=== PATIENT | male | born 1975 | race Caucasian/White ===

== ENCOUNTER 2023-06-09 19:16 | Emergency (ER) | payer OTHER, SELFPAY ==
[2023-06-09 20:00] VITALS: BP 131/100; PULSE 86; RESP 15; TEMP 36.6; O2SAT 97
--- NOTE | 2023-06-09 21:53 | ECG_ITS ---
Measurements Intervals [place] Rate: 78 P: -12 OR: 148 QRS: -16 QRSD: 98 T: 4 QT: 382 QTc: 438 Interpretive Statements SINUS RHYTHM CANNOT RULE OUT PREVIOUS INFERIOR INFARCTION POSSIBLE LEFT VENTRICULAR HYPERTROPHY [VOLTAGE CRITERIA PLUS LAE OR QRS WIDENING] ABNORMAL ECG NO PREVIOUS ECG AVAILABLE FOR COMPARISON Electronically Signed On 06-10-2023 7:12:35 CIRCLE EDGER by John Javier M.D.
--- NOTE | 2023-06-09 21:55 | ED.GENADULT ---
HPI - General Adult General Chief complaint: Psychiatric Symptoms <ALLY Oliver Last Filed: 06/10/23 02:33> Stated complaint: psych eval- auditory/visual hallucinations <ALLY Oliver Last Filed: 06/10/23 02:33> Time Seen by Provider: 06/09/23 21:25 <Ismael Parekh PA-C - Last Filed: 06/10/23 02:33> Source: patient <ALLY Oliver Last Filed: 06/10/23 02:33> Mode of arrival: ambulatory <ALLY Oliver Last Filed: 06/10/23 02:33> Limitations: no limitations <ALLY Oliver Last Filed: 06/10/23 02:33> History of Present Illness HPI narrative: This is a 47-year-old male who presents to the ED with chief complaint of hallucinations both auditory and visual for the past several months. Patient states that his medications are not working and that his anxiety is worsening. Reports he has had occasional thoughts of suicide over the past couple of weeks but no plan to do so. Denies any history of suicide attempt. He will not elaborate on what the voices say but does not indicate that they are vocalizing for him to commit suicide. States his visual hallucinations are him seeing apparitions. Denies any homicidal thoughts. <Ismael Parekh PA-C - Last Filed: 06/10/23 02:33> Related Data Allergies/adverse reactions: Allergies Allergy/AdvReac Type Severity Reaction Status Date / Time No Known Allergies Allergy Verified 06/09/23 21:56 <Ismael Parekh PA-C - Last Filed: 06/10/23 02:33> [facility] Social History Social History: Social History Substance use type: crack/cocaine and amphetamines <ALLY Oliver Last Filed: 06/10/23 02:33> Exam Narrative: GENERAL: Disheveled appearance. Resting comfortably HEAD: Normocephalic, atraumatic. EYES: PERRLA and EOMI. ENT: Nares clear, no rhinorrhea or epistaxis. Mucous membranes moist. Oropharynx without tonsillar hypertrophy exudate or other lesions. NECK: Supple. No adenopathy or masses. CHEST: No respiratory distress. Clear to auscultation. No wheezes rales or rhonchi HEART: Regular rate and rhythm. No murmur heard. Normal peripheral pulses. ABDOMEN: Soft, nontender, nondistended, normal active bowel sounds. MSK: Normal range of motion. No edema. SKIN: Warm, dry, no rash. NEURO: Alert and oriented x3. No focal deficits. PSYCH: Passive suicidal ideations. No current suicidal intent or plan. Negative homicidal ideation. Seems to be responding to internal stimuli at times but overall very cooperative and polite during the exam. <Ismael Parekh PA-C - Last Filed: 06/10/23 02:33> Course Reevaluation(s) Reevaluation #1: Currently patient complaining of visual and auditory hallucination, is telling me that he would like to go to a psych facility because does not feel well, did not tell me what does he see or hear. But insisted to go to psych facility. <Nargis Nance MD - Last Filed: 06/10/23 14:01> Date: 06/10/23 <Nargis Nance MD - Last Filed: 06/10/23 14:01> Time: 09:22 <Nargis Nance MD - Last Filed: 06/10/23 14:01> Vital Signs Vital signs: Vital Signs Temperature 97.9 F 06/09/23 20:00 Pulse Rate 86 06/09/23 20:00 Respiratory Rate 15 06/09/23 20:00 Blood Pressure 131/100 H 06/09/23 20:00 Pulse Oximetry 97 06/09/23 20:00 Temperature 97.5 F L 06/10/23 17:54 Pulse Rate 72 06/10/23 17:54 Respiratory Rate 16 06/10/23 17:54 Blood Pressure 127/72 06/10/23 17:54 Pulse Oximetry 99 06/10/23 17:54 <Ismael Parekh PA-C - Last Filed: 06/10/23 02:33> Vital Signs Temperature 97.9 F 06/09/23 20:00 Pulse Rate 86 06/09/23 20:00 Respiratory Rate 15 06/09/23 20:00 Blood Pressure 131/100 H 06/09/23 20:00 Pulse Oximetry 97 06/09/23 20:00 Temperature 97.5 F L 06/10/23 17:54 Pulse Rate 72 06/10/23 17:54 Respiratory Rate 16 06/10/23 17:54 Blood Pressure 127/72 06/10/23 17:54 Pulse
[2023-06-09 22:13] LABS: Basophils Percent Auto 0.5 % (0.2-1.2); Eosinophils Absolute Auto 0.1 K/mm3 (0-0.3); Eosinophils Percent Auto 1.8 % (0-4.4); Hematocrit 40.1 % (42.0-52.0); Hemoglobin 13.2 g/dL (14.0-18.0); Immature Granulocyte Absolute 0.01 K/mm3 (0.00-0.031); Immature Granulocyte Percent A 0.2 % (0-0.5); Lymphocytes Absolute Auto 3.14 K/mm3 (0.9-3.2); Lymphocytes Percent Auto 47.8 % (18.3-44.2); Mean Corpuscular HGB Conc 32.9 g/dl (32-36); Mean Corpuscular Hemoglobin 31.1 pg (26-34); Mean Corpuscular Volume 94.4 fl (80-100); Mean Platelet Volume 9.8 fl (7.4-10.4); Monocytes Absolute Auto 0.5 K/mm3 (0.1-0.6); Monocytes Percent Auto 8.1 % (2.6-8.5); Neutrophils Absolute Auto 2.7 K/mm3 (1.3-6.7); Neutrophils Percent Auto 41.6 % (45.5-73.1); Platelet Count Result 267 k/mm3 (150-375); Red Blood Count 4.25 M/mm3 (4.6-6.20); Red Cell Distribution Width 13.3 % (11.5-14.5); White Blood Count 6.6 K/mm3 (4.5-10.0)
[2023-06-09 22:23] LABS: Acetaminophen < 10 ug/mL (10-30); Ethanol < 10 mg/dL (<10); Salicylate < 1.0 mg/dL (2-20)
[2023-06-09 22:48] LABS: Anion Gap 11 mmol/L (8-16); Blood Urea Nitrogen 6 mg/dL (9-20); Carbon Dioxide 25 mmol/L (22-30); Chloride 104 mmol/L (98-107); Estimated CRCL calculation 132 ml/min; Estimated Glomerular Filt Rate > 60; Glucose 93 mg/dL (65-110); Potassium 3.5 mmol/L (3.4-5.0); Sodium 140 mmol/L (137-145)
[2023-06-09 22:52] LABS: Influenza A QL RT-PCR Negative (Negative); Influenza B QL RT-PCR Negative (Negative); RSV RNA, RT-PCR Negative (Negative); SARS-CoV-2 RNA PCR Negative (Negative)
[2023-06-10 02:33] VITALS: BP 117/66; PULSE 77; RESP 20; O2SAT 100
--- NOTE | 2023-06-10 03:12 | PC.NURSE ---
Report received from FRANCIE Elam
--- NOTE | 2023-06-10 03:13 | PC.NURSE ---
Upon entering the patients room the patient was sleeping. The patient was asked by nursing staff he if could provide a urine sample. The patient stated not at the moment . Patient states I'm drinking water . When asked if patient wanted a straight catheter to obtain urine or IV fluids patient denied and stated I'm trying to urinate naturally .
[2023-06-10 05:39] VITALS: BP 126/82; PULSE 76; RESP 14; O2SAT 99
[2023-06-10 07:06] LABS: Appearance Urine Clear (Clear); Bacteria Urine None Seen /hpf; Bilirubin Urine Negative (Negative); Blood Urine Negative (Negative); Color Urine Dark Yellow (Yellow); Glucose Urine UA Negative (Negative); Ketones Urine Trace mg/dL (Negative); Leukocyte Esterase Ur Negative LEU/UL (Negative); Nitrate Urine Negative (Negative); Non Pathogenic Casts 0-2; Protein Urine Trace mg/dL (Negative); RBC Urine 0-2 /hpf (0-2); Specific Grav Ur 1.027 (1.001-1.035); Squamous Epithelial Cell Urine None seen /hpf (Few); WBC Urine 0-5 /hpf; pH Urine 6.5 (5.0-9.0)
[2023-06-10 07:08] LABS: Add Urine Microscopic? YES
[2023-06-10 07:59] LABS: Barbiturate Screen Urine Negative (Negative); Benzodiazepines Screen Urine Negative (Negative)
[2023-06-10 08:05] LABS: Amphetamine Screen Urine Positive (Negative); Cannabinoid Screen Urine Negative (Negative); Cocaine Screen Urine Positive (Negative); Methadone Screen Urine Negative (Negative); Opiate Screen Urine Negative (Negative); Phencyclidine Screen Urine Negative (Negative)
--- NOTE | 2023-06-10 11:16 | PC.NURSE ---
Assumed care of patient, educated that he must stay in room and cannot be wandering the halls by this RN and hospital admitting clerk. Pt also refusing to be transferred to [facility] stating Staci been there 3 times and they refuse me care . Martine at Crisis notified. Awaiting feedback from 2 more facilities.
--- NOTE | 2023-06-10 13:24 | PC.NURSE ---
Patient ate lunch and resting in bed. Still awaiting facility acceptance.
--- NOTE | 2023-06-10 13:32 | PC.NURSE ---
Staff from [facility] in [place] called accepting patient. They are sending over forms for patient to sign first.
--- NOTE | 2023-06-10 14:49 | PC.NURSE ---
Report provided to Jenny at [facility]. All questions answered. Awaiting transport eta.
[2023-06-10 17:54] VITALS: BP 127/72; PULSE 72; RESP 16; TEMP 36.4; O2SAT 99
== END 2023-06-10 19:04 ==
PROVIDERS: Physician Assistant; Emergency Provider Emergency Medicine
DX: F29 Unspecified psychosis not due to a substance or known physiological condition (principal); F32.9 Major depressive disorder, single episode, unspecified; Z11.52 Encounter for screening for COVID-19; R94.31 Abnormal electrocardiogram [ECG] [EKG]
CPT/HCPCS: 36415; 80048; 80307; 81001; 84443; 85025; 87637; 93005; 99285